=== PATIENT | female | born 1990 | race Caucasian/White ===

== ENCOUNTER 2021-04-27 12:52 | Outpatient (CLI) | payer OTHER ==
[2021-04-28 11:03] LABS: SARS-CoV-2 PCR by NAA Not Detected (NotDetected)
== END 2021-04-27 12:53 | disposition home or self-care (01) ==
LOC: CSHLAB 12:52
PROVIDERS: ATTEND Obstetrics & Gynecology
DX: Z20.822 Contact with and (suspected) exposure to COVID-19 (principal)
CPT/HCPCS: U0003; U0005

== ENCOUNTER 2021-04-29 05:29 | Inpatient (IN) | payer OTHER ==
[2021-04-29 06:09] VITALS: BMI 26.2
[2021-04-29] MEDS: Lactated Ringer's 1,000 ML IV SCH ×2 (06:20→10:35)
[2021-04-29] MEDS ORDERED: Carboprost 250 MCG/ML AMP IM PRN (07:38)
[2021-04-29] MEDS ORDERED: Diphenoxylate HCl/Atropine Tablet PO PRN ×2 (07:38)
[2021-04-29] MEDS ORDERED: Butorphanol Tartrate 1 MG/ML VIAL SLOW IVP PRN (07:38)
[2021-04-29] MEDS ORDERED: HYDROcodone/Acetaminophen 5/325 mg Tablet PO PRN (07:38)
[2021-04-29] MEDS ORDERED: Acetaminophen 500 MG TAB PO PRN (07:38)
[2021-04-29] MEDS ORDERED: Methylergonovine 0.2 MG/ML VIAL IM PRN ×2 (07:38→17:50)
[2021-04-29] MEDS ORDERED: Promethazine HCl 25 MG/ML VIAL IM PRN ×3 (07:38→17:50)
[2021-04-29] MEDS ORDERED: Misoprostol 200 MCG TAB PR PRN (07:38)
[2021-04-29] MEDS ORDERED: Lidocaine 1% (PF) 30 ML VIAL SC PRN (07:38)
[2021-04-29] MEDS ORDERED: Ondansetron PF 4 MG/2 ML Vial IVP PRN ×3 (07:38→17:50)
[2021-04-29] MEDS ORDERED: hydrALAZINE 20 MG/ML VIAL SLOW IVP PRN ×2 (07:38→17:50)
[2021-04-29] MEDS ORDERED: Ibuprofen 800 MG TAB PO PRN (07:38)
[2021-04-29] MEDS ORDERED: NS w/ Oxytocin 30 units 500 ML IV SCH ×3 (07:45→17:50)
[2021-04-29] MEDS ORDERED: NS w/ Oxytocin 30 units 500 ML IVPB SCH (07:45)
[2021-04-29] MEDS ORDERED: Bupivacaine 0.25% HCL 30 ML VIAL ONE (08:00)
[2021-04-29] MEDS ORDERED: Penicillin G Potassium 5 MILL.UNITS in Sodium Chloride 0.9% 100 ML IVPB SCH (08:00)
[2021-04-29 08:57] LABS: Hemoglobin 7.6 g/dL (12.0-15.5); Mean Corpuscular HGB CONC 30.8 g/dL (32.0-36.0); Mean Corpuscular Hemoglobin 25.2 pg (27.0-33.0); Mean Corpuscular Volume 82.1 fl (81.6-98.3); Mean Platelet Volume 12.3 fl (7.4-10.4); Platelet Count 189 10x3/uL (150-450); Red Blood Cell (RBC) Count 3.01 10x6/uL (3.90-5.03); White Blood Cell (WBC) Count 9.1 10x3/uL (3.5-10.5)
[2021-04-29 09:31] LABS: Hep B Surf Ag Non-Reactive S/CO (NonReactive); Syphilis Antibody Nonreactive (Nonreactive); Syphilis Antibody Index 0.04 S/CO (<1.00 Non-Reactive)
[2021-04-29 09:39] LABS: HBSAg Index 0.18 S/CO (0-0.99)
[2021-04-29] MEDS ORDERED: Fentanyl 2 mcg/Bup 0.1% Cadd 100 ML ONE (10:17)
[2021-04-29] MEDS ORDERED: Lactated Ringer's 500 ML IV PRN (10:52)
[2021-04-29] MEDS ORDERED: Naloxone HCl 0.4 mg/ml Vial IVP PRN ×2 (10:52)
[2021-04-29] MEDS ORDERED: Hydrocerin (Eucerin) Cream 120 gm Jar TOP PRN (10:52)
[2021-04-29] MEDS ORDERED: diphenhydrAMINE 50 MG/ML VIAL IVP PRN (10:52)
[2021-04-29] MEDS ORDERED: Acetaminophen 325 MG TAB PO PRN (10:52)
[2021-04-29] MEDS ORDERED: ePHEDrine Sulfate 50 MG/10 ML VIAL SLOW IVP PRN (10:52)
[2021-04-29] MEDS ORDERED: Fentanyl 2 mcg/Bupivacaine 0.1% Cassette 100 ML EPIDURAL SCH (11:00)
[2021-04-29] MEDS ORDERED: Communication Order-Pharmacy FS SCH (11:00)
[2021-04-29] MEDS: Penicillin G 2.5 MILL.units 2.5 MILL.UNITS in Premix Bag 1 BAG IVPB SCH ×2 (13:35→17:27)
[2021-04-29] MEDS ORDERED: Varicella virus, LIVE 0.5 ML VIAL SC ONE (17:50)
[2021-04-29] MEDS ORDERED: Zolpidem Tartrate 5 MG TAB PO PRN (17:50)
[2021-04-29] MEDS ORDERED: Preparation H Ointment 28 GM TUBE PR PRN (17:50)
[2021-04-29] MEDS ORDERED: Lanolin Ointment 7 GM TUBE TOP PRN (17:50)
[2021-04-29] MEDS ORDERED: Misoprostol 200 MCG TAB VAG PRN (17:50)
[2021-04-29] MEDS ORDERED: Benzocaine-Menthol 82.5 ML CAN TOP PRN (17:50)
[2021-04-29] MEDS ORDERED: diphenhydrAMINE 25 MG CAP PO PRN (17:50)
[2021-04-29] MEDS ORDERED: Boostrix 0.5 ML (Tdap) VIAL IM ONE (17:50)
[2021-04-29] MEDS ORDERED: Measles/Mumps/Rubella 10 MCG/0.5 ML VIAL SC ONE (17:50)
[2021-04-29] MEDS ORDERED: Milk Of Magnesia 30 ML UDCUP PO PRN (17:50)
[2021-04-29] MEDS ORDERED: Bisacodyl 10 MG SUPP PR PRN (17:50)
[2021-04-29] MEDS: HYDROcodone/Acetaminophen 5/325 mg Tablet PO PRN (19:40)
[2021-04-29] MEDS: Docusate Calcium (SURFAK) 240 MG CAP PO SCH (21:51)
[2021-04-30] MEDS: Ibuprofen 800 MG TAB PO SCH ×3 (02:17→14:22)
[2021-04-30 04:44] LABS: Hemoglobin 7.9 g/dL (12.0-15.5); Mean Corpuscular HGB CONC 31.7 g/dL (32.0-36.0); Mean Corpuscular Hemoglobin 25.6 pg (27.0-33.0); Mean Corpuscular Volume 80.8 fl (81.6-98.3); Mean Platelet Volume 12.4 fl (7.4-10.4); Platelet Count 168 10x3/uL (150-450); RBC Distribution Width 12.9 % (11.5-14.5); Red Blood Cell (RBC) Count 3.08 10x6/uL (3.90-5.03); White Blood Cell (WBC) Count 9.2 10x3/uL (3.5-10.5)
[2021-04-30] MEDS ORDERED: Ferrous Sulfate 325 MG TAB PO SCH (08:00)
[2021-04-30] MEDS: HYDROcodone/Acetaminophen 5/325 mg Tablet PO PRN ×2 (08:30→12:15)
[2021-04-30] MEDS ORDERED: Prenatal Vitamin 1 TAB PO SCH (09:00)
[2021-04-30] MEDS: Docusate Calcium (SURFAK) 240 MG CAP PO SCH (09:35)
[2021-04-30 11:57] VITALS: BP 105/63; TEMP 98.4
== END 2021-04-30 17:05 | disposition home or self-care (01) | DRG 807 ==
LOC: CSHLD 05:29 → CSHPED 17:00
PROVIDERS: ADMIT Obstetrics & Gynecology; ATTEND Obstetrics & Gynecology
PROC: 10E0XZZ Delivery of Products of Conception, External Approach (ICD-10-PCS; principal; 2021-04-29)
PROC: 3E0P7VZ Introduction of Hormone into Female Reproductive, Via Natural or Artificial Opening (ICD-10-PCS; 2021-04-29)
PROC: 3E033VJ Introduction of Other Hormone into Peripheral Vein, Percutaneous Approach (ICD-10-PCS; 2021-04-29)
PROC: 0HQ9XZZ Repair Perineum Skin, External Approach (ICD-10-PCS; 2021-04-29)
DX: O99.824 Streptococcus B carrier state complicating childbirth (principal); Z37.0 Single live birth; O99.284 Endocrine, nutritional and metabolic diseases complicating childbirth; E03.9 Hypothyroidism, unspecified; Z3A.39 39 weeks gestation of pregnancy; O99.02 Anemia complicating childbirth; D64.9 Anemia, unspecified; O99.344 Other mental disorders complicating childbirth; F32.A Depression, unspecified; O70.0 First degree perineal laceration during delivery
CPT/HCPCS: 36415; 51702; 85027; 86780; 86850; 86900; 86901; 87340; J2540; J2590; J3490; J7120; S0020